=== PATIENT | female | born 1955 | race Caucasian/White ===

== ENCOUNTER 2017-03-09 12:22 | Emergency (ER) | payer BC ==
[~2017-03-09] VITALS: Ht 157.5 cm; Wt 74.2 kg
[2017-03-09 12:49] VITALS: TEMP 36.4; Ht 157.5 cm; Wt 74.2 kg
[2017-03-09] MEDS ORDERED: SODIUM CHLORIDE 0.9% 1000ML 1,000 ML IV STA ×3 (14:32→16:33)
[2017-03-09] MEDS ORDERED: ONDANSETRON INJ 2 MG/ML 2 ML VIAL IV STA (14:32)
[2017-03-09] MEDS ORDERED: MoRPHine SULFATE 10 MG/ML CARP/VIAL IV STA (14:32)
[2017-03-09] MEDS ORDERED: MoRPHine SULFATE 4 MG/ML 1 ML CARP\\VIAL IV PRN (14:45)
[2017-03-09 14:53] LABS: BASO % 0.2 %; BASO ABS # 0.02 K/uL (0-0.2); COMPLETE YES; EOS % 0.3 %; HEMATOCRIT 43.4 % (37-47); IG% 0.3 %; LYMPH % 11.2 %; LYMPH ABS # 1.49 K/uL (1.2-3.4); MEAN CELL VOLUME 88.2 fL (80-100); MEAN CORPUSCULAR HEMOGLOBIN 28.9 pg (25-34); MEAN CORPUSCULAR HGB CONC 32.7 g/dl (32-36); MEAN PLATELET VOLUME 10.4 fL (7.4-10.4); MONO % 5.5 %; NEUT % 82.5 %; PLATELET COUNT 300 K/uL (130-400); RED BLOOD COUNT 4.92 M/uL (4.2-5.4)
--- NOTE | 2017-03-09 15:16 | DIAGNOSTIC IMAGING REPORT ---
ABDOMEN 2VIEW W/PA CHEST RTN CLINICAL HISTORY: EVAL ABD PAIN pain COMPARISON STUDY: No previous studies for comparison. FINDINGS: Nonobstructive bowel pattern. Small staghorn calculus upper aspect left kidney had a maximum dimension of 1.7 cm. Right renal shadows partially obscured due to overlying bowel content. Lungs are clear. Diaphragms are smooth. IMPRESSION: 1. Negative chest. 2. Nonobstructive bowel pattern. 3. 1.7 cm calcification mid to upper pole left kidney. The above report was generated using voice recognition software. It may contain grammatical, syntax or spelling errors. Electronically signed by: Zachariah Weinstein M.D. 03/09/2017 3:14 PM Dictated Date/Time: 03/09/2017 3:13 PM
[2017-03-09 15:20] LABS: ALT/SGPT 54 U/L (12-78); BLOOD UREA NITROGEN 22 mg/dl (7-18); BUN/CREATININE RATIO 27.3 (10-20); CALCIUM 9.2 mg/dl (8.5-10.1); CARBON DIOXIDE 27 mmol/L (21-32); CHLORIDE 105 mmol/L (98-107); GLUCOSE 95 mg/dl (70-99); POTASSIUM 3.5 mmol/L (3.5-5.1); SODIUM 139 mmol/L (136-145)
[2017-03-09 15:25] LABS: ALB/GLOB RATIO 1.1 (0.9-2); ALKALINE PHOSPHATASE 48 U/L (45-117); AST/SGOT 102 U/L (15-37)
[2017-03-09] MEDS ORDERED: PANT40TA PO (15:53)
[2017-03-09] MEDS ORDERED: TRAMTAB5 PO (15:53)
[2017-03-09] MEDS ORDERED: CYCL10TA6 PO (15:53)
--- NOTE | 2017-03-09 16:09 | DIAGNOSTIC IMAGING REPORT ---
BILIARY ULTRASOUND CLINICAL HISTORY: RUQ PAIN COMPARISON STUDY: No previous studies for comparison. FINDINGS: The pancreatic duct is dilated measuring 5 mm in diameter. No pancreatic masses are visualized on ultrasound examination. No gallstones are visualized. There is no gallbladder wall thickening and no evidence of pericholecystic fluid. The common bile duct measures 5 mm. There is mild fullness the right renal pelvis.. There is slight increase in hepatic echogenicity suggesting hepatic steatosis. There is an area of presumed focal fatty sparing adjacent to the gallbladder. IMPRESSION: 1. Unexplained dilatation of pancreatic duct which measures [address] scan or MRI study should be considered in follow-up 2. Suspected hepatic steatosis with focal fatty sparing adjacent to the gallbladder 3. Ultrasonographically normal gallbladder. No evidence of common bile duct dilatation Electronically signed by: Luis Brewer M.D. 03/09/2017 4:08 PM Dictated Date/Time: 03/09/2017 4:05 PM
[2017-03-09 16:18] LABS: URINE APPEARANCE CLOUDY (CLEAR); URINE BILIRUBIN NEG (NEG); URINE COLOR YELLOW; URINE EPITHELIAL CELL AUTO >30 /lpf (0-5); URINE NITRITE NEG (NEG); URINE SPECIFIC GRAVITY 1.025 (1.000-1.030); UROBILINOGEN NEG (NEG)
[2017-03-09 16:20] LABS: MANUAL MICROSCOPIC REQUIRED? NO; REVIEW REQ? YES
[2017-03-09] MEDS ORDERED: OPTIRAY 320 IV PRN (18:00)
--- NOTE | 2017-03-09 18:16 | DIAGNOSTIC IMAGING REPORT ---
ABDOMEN AND PELVIS CT WITH IV CONTRAST CT DOSE: 466.87 mGy.cm HISTORY: Right upper quadrant abdominal PAIN, ABNORMAL RUQ ULTRASOUND (DIL PANCREATIC DUCT) TECHNIQUE: Multiaxial CT images of the abdomen and pelvis were performed following the use of intravenous contrast. A dose lowering technique was utilized adhering to the principles of ALARA. COMPARISON STUDY: Abdominal ultrasound 03/09/2017. FINDINGS: The lung bases are clear. No suspicious lytic or blastic osseous lesions. Mild hepatic steatosis. No hepatic or splenic masses. The adrenal glands are unremarkable. The main pancreatic duct does not appear to be dilated on this study. No pancreatic masses identified. Normal caliber common bile duct. There appears to be trace pericholecystic fluid best seen on image 140. This is adjacent to the hepatic surface. Normal right kidney. Multifocal scarring within the left kidney. There is a staghorn calculus within the lower pole of the left kidney. This measures 1.7 cm. There are 2, 6 mm hypodense lesions within the left kidney which are too small to characterize but favor cysts. No gallbladder wall thickening. No retroperitoneal lymphadenopathy. Normal bladder. Hysterectomy. No bowel wall thickening or obstruction. Colonic diverticulosis. The appendix is not identified and may be surgically absent. Diverticula at the second portion of the duodenum. IMPRESSION: 1. The main pancreatic duct does not appear to be dilated on this study. No definite pancreatic masses. 2. Trace pericholecystic fluid. This is adjacent to the hepatic surface and is nonspecific. This could be due to underlying hepatic or gallbladder pathology. There is no gallbladder wall thickening. 3. Mild hepatic steatosis. 4. Left-sided nephrolithiasis. No ureteral stones. No hydronephrosis. 5. No bowel wall thickening or obstruction. Electronically signed by: Jarret Parmar M.D. 03/09/2017 6:14 PM Dictated Date/Time: 03/09/2017 5:58 PM
[2017-03-09] MEDS ORDERED: HYDR-5688 PO (18:36)
[2017-03-09] MEDS ORDERED: ONDA4TAB10 SL (18:36)
--- NOTE | 2017-03-09 18:37 | EMERGENCY ROOM VISIT NOTE ---
History First contact with patient: 14:10 Chief Complaint: VOMITING Stated Complaint: VOMITING Nursing Triage Summary: Pt c/o right upper abd pain that wraps around to her back since 0830 this am. Vomited once, denies diarrhea and constipation. History of similar episodes of pain. History of Present Illness Patient is a generally healthy 61-year-old white female who presents to the emergency department accompanied by family for evaluation of right upper quadrant abdominal pain that started acutely this morning roughly 6 hours ago. She states that she had been feeling well and was in her usual state of health this week. She ate a normal Thanksgiving meal yesterday. She states that prior to eating this morning, she developed a sharp, stabbing pain in the right upper quadrant that wrapped around toward the right upper back. The pain has been constant over the last 6 hours since it started. She notes some associated nausea and vomited x 1 here in the emergency department upon her arrival. She has had episodes of pain similar to this for at least the last year to year and a half, but this is the worst that she has ever experienced. She was started on Protonix by her PCP last summer which she is still presently taking. She states that about a month ago she had an ultrasound of the gallbladder, and a HIDA scan, which were both negative per the patient, and no further workup was recommended. No further interventions have been discussed. Patient presently rates her pain a 9/10. She notes some burning "acidy" discomfort in the midsternal region because she just vomited, but denies any jose david chest pain, no palpitations or shortness of breath. She denies any back or flank pain. No urinary symptoms. She reports a normal formed brown bowel movement this morning, without blood or melena. She is status post abdominal hysterectomy. She does report a family history of gallbladder cancer. Review of Systems Review of systems as per HPI. All other systems reviewed were negative. 10 systems reviewed. Past Medical/Surgical History Medical Problems: (1) Personal History Of Urinary Calculi Surgical Problems: (1) History of colonoscopy (2) History of cystoscopy (3) History of lithotripsy (4) History of total abdominal hysterectomy Electronic medical records are reviewed and summarized as above/below. See Problem List. Social History Smoking Status: Never Smoker Marital Status: Housing Status: lives with family Occupation Status: employed Current/Historical Medications Scheduled Pantoprazole (Protonix), 40 MG PO DAILY Scheduled PRN Cyclobenzaprine Hcl (Flexeril), 10 MG PO TID PRN for spasms Hydrocodone/Acetaminophen 5MG/325MG (Hazel 5MG/325MG), 1-2 TABLETS PO Q4 PRN for Pain Ondasetron Odt (Zofran Odt), 4 MG SL Q6H PRN for Nausea or Vomiting Tramadol/Acetaminophen (Ultracet), 1-2 TAB PO TID PRN for Pain Physical Exam Vital Signs Date Time Temp Pulse Resp B/P (MAP) Pulse Ox O2 Delivery O2 Flow Rate FiO2 03/09/17 18:50 75 16 123/87 97 03/09/17 17:37 71 15 94 03/09/17 17:31 132/80 03/09/17 17:22 77 29 93 03/09/17 17:09 133/80 03/09/17 17:07 73 95 03/09/17 16:52 73 95 03/09/17 16:41 124/81 03/09/17 16:40 78 18 124/81 96 Room Air 03/09/17 14:45 73 20 117/73 96 Room Air 03/09/17 12:49 36.4 74 18 137/75 98 Room Air Physical Exam CONSTITUTIONAL: Patient is an uncomfortable-appearing 61-year-old white female who is awake and alert and in moderate distress due to her right upper quadrant pain. Vital signs are stable. EYES: Pupils equal, round, reactive to light and accommodation. EOMs intact without nystagmus. Sclera are anicteric. ENT: Tympanic membranes intact, with normal landmarks. External canals are clear. Oral and nasopharynx are clear. Mucous membranes are moist, no lesions , tongue and gums appear normal. CARDIOVASCULAR: Regular rate and rhythm, with normal S1 and S2, no murmur or gallop or rub is heard. No carotid bruits auscultated. No JVD. Peripheral pulses easy to palpable. RESPIRATORY: Breath sounds equal and clear to auscultation without wheezes, rales, or rhonchi heard. Full and equal chest expansion without accessory muscle use or retractions. GI: Bowel sounds are present. Well-healed lower abdominal surgical incision. Abdomen is soft, nondistended, tender and the epigastric and the right upper quadrants, without guarding, rebound or rigidity. No organomegaly. No pulsatile masses. MUSCULOSKELETAL: Full range of motion of extremities x 4 with good strength. No cyanosis, edema, joint tenderness or swelling. No deformity. INTEGUMENTARY: No lesions or rash, normal skin turgor. NEUROLOGICAL: Alert, oriented, and cooperative. Cranial nerves, sensation and strength grossly intact. Pupils round, equal, and react to light, EOMs are full. LYMPH: No lymphadenopathy. Medical Decision & Procedures ER Provider Diagnostic Interpretation: ABDOMEN AND PELVIS CT WITH IV CONTRAST CT DOSE: 466.87 mGy.cm HISTORY: Right upper quadrant abdominal PAIN, ABNORMAL RUQ ULTRASOUND (DIL PANCREATIC DUCT) TECHNIQUE: Multiaxial CT images of the abdomen and pelvis were performed following the use of intravenous contrast. A dose lowering technique was utilized adhering to the principles of ALARA. COMPARISON STUDY: Abdominal ultrasound 03/09/2017. FINDINGS: The lung bases are clear. No suspicious lytic or blastic osseous lesions. Mild hepatic steatosis. No hepatic or splenic masses. The adrenal glands are unremarkable. The main pancreatic duct does not appear to be dilated on this study. No pancreatic masses identified. Normal caliber common bile duct. There appears to be trace pericholecystic fluid best seen on image 140. This is adjacent to the hepatic surface. Normal right kidney. Multifocal scarring within the left kidney. There is a staghorn calculus within the lower pole of the left kidney. This measures 1.7 cm. There are 2, 6 mm hypodense lesions within the left kidney which are too small to characterize but favor cysts. No gallbladder wall thickening. No retroperitoneal lymphadenopathy. Normal bladder. Hysterectomy. No bowel wall thickening or obstruction. Colonic diverticulosis. The appendix is not identified and may be surgically absent. Diverticula at the second portion of the duodenum. IMPRESSION: 1. The main pancreatic duct does not appear to be dilated on this study. No definite pancreatic masses. 2. Trace pericholecystic fluid. This is adjacent to the hepatic surface and is nonspecific. This could be due to underlying hepatic or gallbladder pathology. There is no gallbladder wall thickening. 3. Mild hepatic steatosis. 4. Left-sided nephrolithiasis. No ureteral stones. No hydronephrosis. 5. No bowel wall thickening or obstruction. ABDOMEN 2VIEW W/PA CHEST RTN CLINICAL HISTORY: EVAL ABD PAIN pain COMPARISON STUDY: No previous studies for comparison. FINDINGS: Nonobstructive bowel pattern. Small staghorn calculus upper aspect left kidney had a maximum dimension of 1.7 cm. Right renal shadows partially obscured due to overlying bowel content. Lungs are clear. Diaphragms are smooth. IMPRESSION: 1. Negative chest. 2. Nonobstructive bowel pattern. 3. 1.7 cm calcification mid to upper pole left kidney. BILIARY ULTRASOUND CLINICAL HISTORY: RUQ PAIN COMPARISON STUDY: No previous studies for comparison. FINDINGS: The pancreatic duct is dilated measuring 5 mm in diameter. No pancreatic masses are visualized on ultrasound examination. No gallstones are visualized. There is no gallbladder wall thickening and no evidence of pericholecystic fluid. The common bile duct measures 5 mm. There is mild fullness the right renal pelvis.. There is slight increase in hepatic echogenicity suggesting hepatic steatosis. There is an area of presumed focal fatty sparing adjacent to the gallbladder. IMPRESSION: 1. Unexplained dilatation of pancreatic duct which measures [address] scan or MRI study should be considered in follow-up 2. Suspected hepatic steatosis with focal fatty sparing adjacent to the gallbladder 3. Ultrasonographically normal gallbladder. No evidence of common bile duct dilatation Laboratory Results 03/09/17 14:30 Red Blood Count 4.92, Mean Corpuscular Volume 88.2, Mean Corpuscular Hemoglobin 28.9, Mean Corpuscular Hemoglobin Concent 32.7, Mean Platelet Volume 10.4, Neutrophils (%) (Auto) 82.5, Lymphocytes (%) (Auto) 11.2, Monocytes (%) (Auto) 5.5, Eosinophils (%) (Auto) 0.3, Basophils (%) (Auto) 0.2, Neutrophils # (Auto) 10.98, Lymphocytes # (Auto) 1.49, Monocytes # (Auto) 0.73, Eosinophils # (Auto) 0.04, Basophils # (Auto) 0.02 03/09/17 14:30 Test 03/09/17 14:15 03/09/17 14:30 Urine Color YELLOW Urine Appearance CLOUDY (CLEAR) Urine pH 5.0 (4.5-7.5) Urine Specific [place] 1.025 (1.000-1.030) Urine Protein NEG (NEG) Urine Glucose (UA) NEG (NEG) Urine Ketones TRACE (NEG) Urine Occult Blood 2+ (NEG) Urine Nitrite NEG (NEG) Urine Bilirubin NEG (NEG) Urine Urobilinogen NEG (NEG) Urine Leukocyte Esterase SMALL (NEG) Urine WBC (Auto) 5-10 /hpf (0-5) Urine RBC (Auto) 0-4 /hpf (0-4) Urine Hyaline Casts (Auto) 1-5 /lpf (0-5) Urine Epithelial Cells (Auto) >30 /lpf (0-5) Urine Bacteria (Auto) NEG (NEG) Urine Renal Epithelial Cells /lpf (0-5) Urine Crystals CALCIUM OXALATE (NONE White Blood Count 13.30 K/uL (4.8-10.8) Red Blood Count 4.92 M/uL (4.2-5.4) Hemoglobin 14.2 g/dL (12.0-16.0) Hematocrit 43.4 % (37-47) Mean Corpuscular Volume 88.2 fL (80-100) Mean Corpuscular Hemoglobin 28.9 pg (25-34) Mean Corpuscular Hemoglobin Concent 32.7 g/dl (32-36) Platelet Count 300 K/uL (130-400) Mean Platelet Volume 10.4 fL (7.4-10.4) Neutrophils (%) (Auto) 82.5 % Lymphocytes (%) (Auto) 11.2 % Monocytes (%) (Auto) 5.5 % Eosinophils (%) (Auto) 0.3 % Basophils (%) (Auto) 0.2 % Neutrophils # (Auto) 10.98 K/uL (1.4-6.5) Lymphocytes # (Auto) 1.49 K/uL (1.2-3.4) Monocytes # (Auto) 0.73 K/uL (0.11-0.59) Eosinophils # (Auto) 0.04 K/uL (0-0.5) Basophils # (Auto) 0.02 K/uL (0-0.2) RDW Standard Deviation 43.3 fL (36.4-46.3) RDW Coefficient of Variation 13.3 % (11.5-14.5) Immature Granulocyte % (Auto) 0.3 % Immature Granulocyte # (Auto) 0.04 K/uL (0.00-0.02) Anion Gap 7.0 mmol/L (3-11) Est Creatinine Clear Calc Drug Dose 70.5 ml/min Estimated GFR () 92.9 Estimated GFR (Non- 80.1 BUN/Creatinine Ratio 27.3 (10-20) Calcium Level 9.2 mg/dl (8.5-10.1) Total Bilirubin 0.6 mg/dl (0.2-1) Aspartate Amino Transf (AST/SGOT) 102 U/L (15-37) Alanine Aminotransferase (ALT/SGPT) 54 U/L (12-78) Alkaline Phosphatase 48 U/L (45-117) Troponin I < 0.015 ng/ml (0-0.045) Total Protein 8.2 gm/dl (6.4-8.2) Albumin 4.3 gm/dl (3.4-5.0) Globulin 3.9 gm/dl (2.5-4.0) Albumin/Globulin Ratio 1.1 (0.9-2) Lipase 313 U/L (73-393) Medications Administered Medications (Trade) Dose Ordered Sig/Aimee Route Start Time Stop Time Status Last Admin Dose Admin Sodium Chloride 1,000 ml @ 999 mls/hr Q1H1M STAT IV 03/09/17 14:32 03/09/17 15:32 DC 03/09/17 14:48 999 MLS/HR Ondansetron HCl (Zofran Inj) 4 mg NOW STAT IV 03/09/17 14:32 03/09/17 14:35 DC 03/09/17 14:48 4 MG Morphine Sulfate (MoRPHine SULFATE INJ) 6 mg NOW STAT IV 03/09/17 14:32 03/09/17 14:35 DC 03/09/17 14:48 6 MG Morphine Sulfate (MoRPHine SULFATE INJ) 4 mg Q1H PRN IV 03/09/17 14:45 03/09/17 19:32 DC 03/09/17 16:40 4 MG ECG Indication: abdominal pain Rate (beats per minute): 69 Rhythm: normal sinus Findings: no acute ischemic change, no ectopy Comparison ECG Date: no prior available ED Course The patient was seen and examined as above. Her old records were reviewed. Records from [facility] were obtained which do indicate a negative gallbladder ultrasound and a negative height of skin from the end of December/early January. IV lock was initiated. Laboratory studies were collected including CBC with differential, CMP, lipase, troponin and urinalysis. EKG was performed and was as noted above, without any acute ischemic changes. She was hydrated with normal saline solution, she received a 1 L bolus. She received morphine 6 mg IV and Zofran 4 mg IV. Acute abdominal series was obtained and noted nephrolithiasis, otherwise chest was clear and bowel pattern was nonobstructive. Given her right upper quadrant pain, gallbladder ultrasound was performed. Laboratory studies today noted a slightly elevated white count at 13,300, with left shift and bandemia. H&H is normal. Electrolytes are within normal limits. Renal function is normal. She has slight elevation of her AST at 102, otherwise remainder transaminases and LFTs are within normal limits. Lipase is not elevated. Troponin is negative 1. Urinalysis notes 2+ occult blood, small amount of leuk esterase, 5-10 WBCs, calcium oxalate crystals and greater than 30 epithelial cells. I suspect urine is contaminated and patient is not experiencing any urinary symptoms. Gallbladder ultrasound noted no gallbladder wall thickening or evidence for pericholecystic fluid. Common bile duct was normal. There is suspected hepatic steatosis with focal fatty sparing adjacent to the gallbladder. There was an unexplained dilatation of the pancreatic duct measuring [address] or MRI follow-up was advised. All laboratory and diagnostic imaging studies were reviewed with the patient. She did request additional medication for pain after ultrasound and was given morphine 4 mg IV. Given the findings noted on ultrasound, CT of the abdomen and pelvis with IV contrast was ordered. CT noted the pancreatic duct did not appear to be dilated by CT. No pancreatic masses were identified. There was no gallbladder wall thickening. Trace pericholecystic fluid was noted, reportedly adjacent to the hepatic surface and is nonspecific. Common bile duct was within normal limits. There was no bowel wall thickening or obstruction. Left-sided nephrolithiasis was noted. CT scan findings were reviewed with attending physician, and discussed with the patient and her family. She does have a slightly elevated white count, this could be due to stress of pain and vomiting. She has elevation of one of her transaminases, otherwise LFTs are unremarkable. CT and ultrasound are not indicative of acute cholecystitis. The patient did feel improved after the second dose of IV morphine. Treatment options were discussed with her. She has had right upper quadrant discomfort for almost a year and a half with 2 negative gallbladder ultrasounds, and negative HIDA scan, and a largely unremarkable CT. She has been on a PPI for the duration of her symptoms. She has never been referred to gastroenterology or a surgeon. The patient was encouraged to follow a clear liquid diet, progress to a low-fat diet as tolerated. She was given Zofran and Hazel to use for severe pain and nausea, and was educated on the worrisome signs or symptoms for which she should return to the emergency department, including but not limited to worsening right upper quadrant pain, fevers or persistent vomiting. She was advised to follow-up with her PCP as soon as possible, as I suspect she would benefit from GI evaluation for endoscopy, and may require further workup to exclude her gallbladder as a source of her symptoms. The patient expresses understanding of this and was in agreement. She was discharged to home in stable condition. She reported that she felt improved, however rated her pain an 8/10 at discharge. Vital signs were stable. Differential diagnoses entertained include GERD, gastritis, esophagitis, peptic ulcer disease, pancreatitis, acute cholecystitis, cholelithiasis, mass or malignancy, ascending cholangitis, among others. Medical Decision See Emergency Department course. [facility] Drug Monitoring Program Search Results: patient reviewed within database, no issues identified, see additional documentation Drug Monitoring Findings: Patient receives regular tramadol prescriptions from her PCP due to "nerve pain " as a result of a lithotripsy procedure. Medication Reconcilliation Current Medication List: was personally reviewed by in Blood Pressure Screening Patient's blood pressure: Normal blood pressure Blood pressure disposition: Did not require urgent referral Impression Primary Impression: Right upper quadrant abdominal pain Departure Information Prescriptions Ondasetron Odt (ZOFRAN ODT) 4 Mg Tab 4 MG SL Q6H Y for Nausea or Vomiting, #20 TAB Prov: Keiko Gonzalez PA 03/09/17 Hydrocodone/Acetaminophen 5MG/325MG (Hazel 5MG/325MG) Tab 1-2 TABLETS PO Q4 Y for Pain, #14 TAB For Initial Treatment Prov: Keiko Gonzalez PA 03/09/17 Referrals Zenon Tellez III, M.D. (PCP) Patient Instructions My [facility] Additional Instructions DO NOT drive, drink alcohol, operate machinery, or perform dangerous activities today. You were given medications in the ER that can affect your ability to safely function or operate a vehicle. Hydrocodone/Acetaminophen (Hazel) 5/325 mg: Take 1-2 pills every four hours for breakthrough pain. Avoid alcohol, operating machinery or dangerous equipment, working on ladders or roofs, DRIVING, or situations where being under the influence may be dangerous. It is recommended to use an [id number] stool softener such as Colace, 100mg twice daily while taking this medication to avoid constipation. Do not take tramadol and Hazel concurrently. Acetaminophen(Tylenol) may be used for fever or pain. Use 1000mg every eight hours as needed. Avoid using more than 3000mg in a 24 hour period. This is available over the counter. Zofran(odansetron) tablets 4mg: Take one and allow it to dissolve in your mouth every four hours as needed for nausea or vomiting. Read all the package inserts or medication information paperwork provided. If you have any questions or concerns call your primary provider, pharmacist or the ER for assistance. Rest and drink plenty of fluids as tolerated. Slow sips of water or sports drinks are recommended instead of large amounts all at once. Continue current medications. Once your stomach is settled start with a clear liquid diet (jello, soup broth, etc.) and then advance as tolerated. You should avoid full, heavy meals for about 24 hrs from the time your symptoms resolved. Low fat diet, avoid any greasy/fatty/ascitic foods. Return to the ER immediately for worsening or persistent abdominal pain, vomiting, fevers, chest pains, difficulty breathing, black or bloody stools, worsening of your condition, or as needed. Follow up with your primary physician next week for a recheck of your current condition.
[2017-03-09 18:50] VITALS: BP 123/87; PULSE 75; O2SAT 97
== END 2017-03-09 18:51 | disposition home or self-care (01) ==
LOC: C.EDB 12:24
DX: R10.11 Right upper quadrant pain (principal); R11.2 Nausea with vomiting, unspecified; Z79.899 Other long term (current) drug therapy; Z87.442 Personal history of urinary calculi